=== PATIENT | female | born 1955 | race African-American/Black ===

== ENCOUNTER 2018-07-25 06:33 | Emergency (ER) | payer SELFPAY ==
[2018-07-25 07:04] VITALS: TEMP 98.5; BMI 31.7
--- NOTE | 2018-07-25 07:10 | PDOC ---
History of Present Illness - General Chief Complaint: Shortness of Breath Stated Complaint: DIFFICULTY BREATHING Time Seen by Provider: 07/25/18 07:10 History Source: Patient Exam Limitations: No Limitations - History of Present Illness Initial Comments: 07/25/18 07:28 63 year old female with PMH HTN, Asthma, PE (mid 2017 on Xarelto) presented to ED for shortness of breath since last night. She stated she is traveling from [place] (2 hour flight) for a conference, and is staying in a hotel room that is colder than she is used to, which she thinks is exacerbating her asthma. She stated she has been using her rescue inhaler and nebulizer, but has not had relief. She denied chest pain, lower extremity swelling, fever, chills, cough, nausea, vomiting, diarrhea, abdominal pain. She admitted to a slight headache, which she stated is consistent for when her blood pressure is elevated. She stated her normal blood pressure is 130-140/90. She stated she has taken all of her medications as prescribed. Medications: - Hydralazine 100 mg daily - Losartan 100 mg daily - Clonidine 0.2 mg QID - Xarelto Allergies: NKDA Past History - Past Medical History Allergies/Adverse Reactions: Allergies Allergy/AdvReac Type Severity Reaction Status Date / Time ipratropium [From Atrovent] Allergy Verified 07/25/18 11:22 Home Medications: Ambulatory Orders Albuterol 0.083% Nebulizer Tabby [Ventolin 0.083% Nebulizer Soln -] 1 neb NEB Q4H PRN #30 vial 07/25/18 Clonidine HCl 0.2 mg PO QID 07/25/18 Hydralazine HCl 25 mg PO TID 07/25/18 Losartan Potassium 100 mg PO DAILY 07/25/18 Omeprazole 40 mg PO DAILY 07/25/18 Prednisone [Prednisone 50 MG TABLETS] 50 mg PO DAILY #4 tablet 07/25/18 Rivaroxaban [Xarelto -] 20 mg PO DAILY 07/25/18 - Suicide/Smoking/Psychosocial Hx Smoking History: Never smoked Have you smoked in the past 12 months: No Information on smoking cessation initiated: No Hx Alcohol Use: No Drug/Substance Use Hx: No Review of Systems - Review of Systems Able to Perform ROS?: Yes Comments:: 07/25/18 07:33 General: denied fever, chills, generalized weakness. HEENT: denied sore throat, rhinorrhea, ear pain. Heart: denied chest pain, palpitations, syncope, diaphoresis. Respiratory: admitted to shortness of breath. denied cough, sputum production, hemoptysis. Abdomen: denied abdominal pain, nausea, vomiting, diarrhea, constipation, blood in stool. : denied dysuria, increased urinary frequency, hematuria, urinary incontinence , flank pain. Back: denied back pain. Musculoskeletal: denied joint pain, muscle pain, joint swelling. Neurological: admitted to headache. denied dizziness, numbness, tingling, weakness. Skin: denied rash, laceration, abrasion. *Physical Exam - Vital Signs Last Vital Signs Temp Pulse Resp BP Pulse Ox 98.5 F 96 H 22 H 195/92 H 98 07/25/18 06:33 07/25/18 06:33 07/25/18 06:33 07/25/18 06:33 07/25/18 06:33 - Physical Exam Comments: 07/25/18 07:33 Constitutional: Well-nourished, Well-developed, appearing stated age. HEENT: head is normocephalic, atraumatic. EOMI. PERRLA. Neck: supple. Full ROM. Heart: regular rhythm. no murmurs, rubs or gallops. Lungs: decreased air movement bilaterally. wheezing throughout. speaking full sentences. no accessory muscle use. Abdomen: soft, nontender. normal bowel sounds. no rebound, guarding, masses. Extremities: peripheral pulses intact. no lower extremity edema. Neurological: CN 2-12 grossly intact. moves all four extremities. Psych: awake, alert, oriented x3. follows commands. answers questions appropriately. ED Treatment Course - LABORATORY CBC & Chemistry Diagram: 07/25/18 07:22 07/25/18 07:22 Medical Decision Making - Medical Decision Making 07/25/18 07:34 63 year old female with above PMH presented to ED for shortness of breath. Initial Vital Signs Temp Pulse Resp BP Pulse Ox 98.5 F 96 H 22 H 195/92 H 98 07/25/18 06:33 07/25/18 06:33 07/25/18 06:33 07/25/18 06:33 07/25/18 06:33 Afebrile. No tachycardia. Tachypnea. Hypertensive. No hypoxia on room air. Labs ordered: CBC, CMP, Mag, VBG Imaging ordered: CXR Medications ordered: Duoneb x3 EKG performed at 0737: rate 92, regular rhythm, normal axis, normal intervals, no acute ST changes. 07/25/18 07:43 CBC WBC 5.9 K/mm3 (4.0-10.0) 07/25/18 07:22 RBC 3.92 M/mm3 (3.60-5.2) 07/25/18 07:22 Hgb 12.1 GM/dL (10.7-15.3) 07/25/18 07:22 Hct 36.2 % (32.4-45.2) 07/25/18 07:22 MCV 92.4 fl (80-96) 07/25/18 07:22 MCH 30.7 pg (25.7-33.7) 07/25/18 07:22 MCHC 33.3 g/dl (32.0-36.0) 07/25/18 07:22 RDW 13.4 % (11.6-15.6) 07/25/18 07:22 Plt Count 203 K/MM3 (134-434) 07/25/18 07:22 MPV 9.6 fl (7.5-11.1) 07/25/18 07:22 Absolute Neuts (auto) 3.4 K/mm3 (1.5-8.0) 07/25/18 07:22 Neutrophils % 57.5 % (42.8-82.8) 07/25/18 07:22 Lymphocytes % 28.7 % (8-40) 07/25/18 07:22 Monocytes % 10.6 % (3.8-10.2) H 07/25/18 07:22 Eosinophils % 2.2 % (0-4.5) 07/25/18 07:22 Basophils % 1.0 % (0-2.0) 07/25/18 07:22 Nucleated RBC % 0 % (0-0) 07/25/18 07:22 No leukocytosis. No anemia. 07/25/18 07:56 Pt reported she does not want Duoneb, only wants straight Albuterol because Duoneb makes her heart race. She stated they usually give her a steroid in the IV when her asthma brings her to the ED. Medications canceled: Duonebs Medications ordered: Albuterol nebulizer x3, solumedrol 125 mg IV 07/25/18 08:33 CMP Sodium 137 mmol/L (136-145) 07/25/18 07:22 Potassium 3.7 mmol/L (3.5-5.1) 07/25/18 07:22 Chloride 106 mmol/L (98-107) 07/25/18 07:22 Carbon Dioxide 26 mmol/L (21-32) 07/25/18 07:22 Anion Gap 5 MMOL/L (8-16) L 07/25/18 07:22 BUN 11 mg/dL (7-18) 07/25/18 07:22 Creatinine 0.8 mg/dL (0.55-1.3) 07/25/18 07:22 Creat Clearance w eGFR 72.68 (>60) 07/25/18 07:22 Random Glucose 243 mg/dL (74-106) H 07/25/18 07:22 Calcium 8.5 mg/dL (8.5-10.1) 07/25/18 07:22 Magnesium 1.7 mg/dL (1.8-2.4) L 07/25/18 07:22 Total Bilirubin 0.3 mg/dL (0.2-1) 07/25/18 07:22 AST 15 U/L (15-37) 07/25/18 07:22 ALT 20 U/L (13-61) 07/25/18 07:22 Alkaline Phosphatase 107 U/L (45-117) 07/25/18 07:22 Troponin I < 0.02 ng/ml (0.00-0.05) 07/25/18 07:22 Total Protein 7.6 g/dl (6.4-8.2) 07/25/18 07:22 Albumin 2.9 g/dl (3.4-5.0) L 07/25/18 07:22 No clinically significant electrolyte abnormalities. No REYES. Hyperglycemia. Negative troponin. Urine Test Results Urine Color Yellow 07/25/18 07:37 Urine Appearance Clear 07/25/18 07:37 Urine pH 5.0 (5.0-8.0) 07/25/18 07:37 Ur Specific [place] 1.009 (1.010-1.035) L 07/25/18 07:37 Urine Protein Negative (NEGATIVE) 07/25/18 07:37 Urine Glucose (UA) 1+ (NEGATIVE) H 07/25/18 07:37 Urine Ketones Negative (NEGATIVE) 07/25/18 07:37 Urine Blood Negative (NEGATIVE) 07/25/18 07:37 Urine Nitrite Negative (NEGATIVE) 07/25/18 07:37 Urine Bilirubin Negative (NEGATIVE) 07/25/18 07:37 Ur Leukocyte Esterase Negative (NEGATIVE) 07/25/18 07:37 No protein in urine. No UTI. 07/25/18 08:43 VBG - normal pH with no CO2 retention and no hypoxia. 07/25/18 09:13 Pt reported improvement of symptoms, voice is no longer tight. Wheezing still auscultated bilaterally. Medications ordered: Albuterol neb x2 07/25/18 10:15 CXR report: no acute chest process. Wheezing is still auscultated bilaterally. Medications ordered: Albuterol neb x3 07/25/18 10:36 Vital Signs Temperature 98.5 F 07/25/18 06:33 Pulse Rate 98 H 07/25/18 10:10 Respiratory Rate 18 07/25/18 10:10 Blood Pressure 162/87 07/25/18 10:10 O2 Sat by Pulse Oximetry (%) 100 07/25/18 10:10 Hypertension improving with treatment of asthma exacerbation. Still afebrile. No hypoxia. Pt reassessed, no wheezing, reported she is feeling better and would like to go back to her hotel. Pt is not from the area, stated she will warp picker her prescriptions from [facility]. Discharge medications: Prednisone 50 mg daily x4 days, albuterol nebulizer solution *DC/Admit/Observation/Transfer Diagnosis at time of Disposition: Asthma exacerbation, Shortness of breath - Discharge Dispostion Disposition: HOME Condition at time of disposition: Improved Decision to Admit order: No - Prescriptions Prescriptions: Albuterol 0.083% Nebulizer Tabby [Ventolin 0.083% Nebulizer Soln -] 1 neb NEB Q4H PRN #30 vial PRN Reason: Asthma Prednisone [Prednisone 50 MG TABLETS] 50 mg PO DAILY #4 tablet - Referrals - Patient Instructions Additional Instructions: You were seen today for shortness of breath. Your lab work was normal. Your chest X-ray was normal, there was no pneumonia. Continue using your albuterol nebulizer and rescue inhaler. You can use the nebulizer every 4-6 hours as needed. I have sent a prescription to [facility] for Albuterol solution for your nebulizer and for a daily steroid to take by mouth. script supervisor your prescriptions as soon as possible and take as advised on labels. You have take the first dose of the steroid today in the Emergency Department. Follow up with your primary care doctor when you return to [place]. Call today to make an appointment. Bring all paperwork with you given to you today to your appointment. Return to the Emergency Department for increasing shortness of breath despite albuterol use, chest pain, swelling of the legs, pain in the calves, severe headaches, changes in vision, fever, vomiting, lightheadedness like you may pass out or any other new, worsening or concerning symptoms. - Post Discharge Activity Forms/Work/School Notes: Back to Work
[2018-07-25] MEDS ORDERED: ALBUTEROL SO4 2.5/IPRATROPIUM 0.5 INH SOL 3 ML VIAL.NEB. NEB ONE ×2 (07:29→07:45)
[2018-07-25 07:30] LABS: EOS % 2.2 % (0-4.5); HEMATOCRIT 36.2 % (32.4-45.2); HEMOGLOBIN 12.1 GM/dL (10.7-15.3); LYMPH % 28.7 % (8-40); MCH 30.7 pg (25.7-33.7); MCHC 33.3 g/dl (32.0-36.0); MEAN CELL VOLUME 92.4 fl (80-96); MEAN PLT VOLUME 9.6 fl (7.5-11.1); MONO % 10.6 % (3.8-10.2); NEUT % 57.5 % (42.8-82.8); PLATELET COUNT 203 K/MM3 (134-434); RBC 3.92 M/mm3 (3.60-5.2); RDW 13.4 % (11.6-15.6); WHITE BLOOD COUNT 5.9 K/mm3 (4.0-10.0)
[2018-07-25 07:46] LABS: URINE APPEARANCE CLEAR; URINE BILIRUBIN NEGATIVE (NEGATIVE); URINE COLOR YELLOW; URINE GLUCOSE (UA) 1+ (NEGATIVE); URINE KETONE NEGATIVE (NEGATIVE); URINE LEUK ESTERASE NEGATIVE (NEGATIVE); URINE NITRITE NEGATIVE (NEGATIVE); URINE PROTEIN NEGATIVE (NEGATIVE); URINE UROBILINOGEN 0.2 mg/dL (0.2-1.0)
[2018-07-25] MEDS ORDERED: ALBUTEROL SO4 0.083% IH SOL 2.5 MG/3 ML VIAL.NEB. NEB ONE ×5 (07:54→10:10)
[2018-07-25] MEDS ORDERED: methylPREDNISolone NA SUCC 125 MG/2 ML VIAL IVPUSH ONE (07:55)
[2018-07-25 07:56] LABS: ALBUMIN 2.9 g/dl (3.4-5.0); ALK PHOS 107 U/L (45-117); ANION GAP 5 MMOL/L (8-16); BILIRUBIN,TOTAL 0.3 mg/dL (0.2-1); BLOOD UREA NITROGEN 11 mg/dL (7-18); CALCIUM 8.5 mg/dL (8.5-10.1); CHLORIDE 106 mmol/L (98-107); CO2 26 mmol/L (21-32); CREATININE 0.8 mg/dL (0.55-1.3); GLUCOSE,RANDOM 243 mg/dL (74-106); MAGNESIUM 1.7 mg/dL (1.8-2.4); POTASSIUM 3.7 mmol/L (3.5-5.1); SGOT/AST 15 U/L (15-37); SGPT/ALT 20 U/L (13-61); SODIUM 137 mmol/L (136-145); TOT PROT 7.6 g/dl (6.4-8.2)
[2018-07-25] MEDS ORDERED: methylPREDNISolone NA SUCC 125 MG/2 ML VIAL ONE (08:04)
[2018-07-25 08:28] LABS: VENOUS PC02 50.8 mmHg (41-51); VENOUS PH 7.35 (7.31-7.41); VENOUS PO2 44.6 mmHg (30-40)
--- NOTE | 2018-07-25 09:15 | PDOC ---
Attending Attestation - Resident Resident Name: Monica Edwards - ED Attending Attestation I have performed the following: I have examined & evaluated the patient, The case was reviewed & discussed with the resident, I agree w/resident's findings & plan, Exceptions are as noted - HPI HPI: 07/25/18 09:13 63 F with h/o HTN, Asthma, PE (mid 2017 on Xarelto), presenting to ED with SOB. Pt states that she is having an asthma flare. It is typically triggered by seasonal allergies. Pt endorses nasal congestion over the past few days. Denies F/C. Denies CP. Pt states that she used her nebulizer with minimal relief prior to coming to ED. Denies any leg swelling. Denies orthopnea. - Physicial Exam PE: 07/25/18 09:14 "GENERAL: Awake, alert, and fully oriented, in no acute distress. HEAD: No signs of trauma EYES: PERRLA, EOMI, sclera anicteric, conjunctiva clear ENT: Auricles normal inspection, hearing grossly normal, nares patent, oropharynx clear without exudates. Moist mucosa NECK: Nontender, no stepoffs, Normal ROM, supple, no lymphadenopathy, JVD, or masses LUNGS: + bilateral expiratory wheezes HEART: Regular rate and rhythm, normal S1 and S2, no murmurs, rubs or gallops ABDOMEN: Soft, nontender, normoactive bowel sounds. No guarding, no rebound. No masses EXTREMITIES: Normal range of motion, no edema. No clubbing or cyanosis. No cords, erythema, or tenderness NEUROLOGICAL: Cranial nerves II through XII intact. 5/5 strength and sensation in all extremities, Normal speech, normal gait, normal cerebellar function SKIN: Warm, Dry, normal turgor, no rashes or lesions noted. - Medical Decision Making 07/25/18 09:15 63 F with SOB and wheezing. Likely asthma flare. Pt has h/o PE but is on xarelto. Denies any chest pain or leg swelling. No clinical s/s volume overload. - Labs - CXR - Nebs, steroids - Reassess 07/25/18 10:35 Labs wnl CXR clear Pt reassessed - now no longer wheezing. Denies any complaints at this time. Pt is well appearing, with normal vitals. Clinically stable for DC at this time. I discussed the physical exam findings, ancillary test results and final diagnoses with the patient. I answered all of the patient's questions. The patient was satisfied with the care received and felt comfortable with the discharge plan and treatment plan. The patient agrees to follow up with the primary care physician within 24-72 hours.
[2018-07-25] MEDS ORDERED: ALBUTEROL SO4 2.5/IPRATROPIUM 0.5 INH SOL 3 ML VIAL.NEB. NEB SCH (10:00)
[2018-07-25 10:18] VITALS: BP 162/87; PULSE 98
--- NOTE | 2018-07-25 10:26 | EKG ---
Test Reason : Blood Pressure : / mmHG Vent. Rate : 092 BPM Atrial Rate : 092 BPM P-R Int : 180 ms QRS Dur : 088 ms QT Int : 354 ms P-R-T Axes : 079 013 040 degrees QTc Int : 437 ms NORMAL SINUS RHYTHM NORMAL ECG NO PREVIOUS ECGS AVAILABLE Confirmed by SHRUTI MONTEIRO MD ([id number]) on 07/25/2018 10:25:50 AM Referred By: Confirmed By:SHRUTI MONTEIRO MD
== END 2018-07-25 11:05 | disposition home or self-care (01) ==
LOC: JER 06:33
PROC: 3E0F7GC Introduction of Other Therapeutic Substance into Respiratory Tract, Via Natural or Artificial Opening (ICD-10-PCS; principal; 2018-07-25)
PROC: 3E0F7GC Introduction of Other Therapeutic Substance into Respiratory Tract, Via Natural or Artificial Opening (ICD-10-PCS; 2018-07-25)
PROC: 3E0F7GC Introduction of Other Therapeutic Substance into Respiratory Tract, Via Natural or Artificial Opening (ICD-10-PCS; 2018-07-25)
PROC: 3E0F7GC Introduction of Other Therapeutic Substance into Respiratory Tract, Via Natural or Artificial Opening (ICD-10-PCS; 2018-07-25)
DX: J45.901 Unspecified asthma with (acute) exacerbation (principal); I10 Essential (primary) hypertension; R73.9 Hyperglycemia, unspecified
CPT/HCPCS: 36415; 71045-TC-FY; 80053; 81003; 82803; 83735; 84484; 85025; 93005; 93010; 99282-25